=== PATIENT | female | born 1980 | race Caucasian/White ===

== ENCOUNTER → 2017-02-05 | Outpatient (CLI) | payer BC ==
--- NOTE | 2017-02-05 15:41 | DI ---
Indication: ITS.REASON: Z34.91 Encounter for supervision of normal , unspecified PROCEDURE: US OB <14 WKS WITH TRANSVAG: Encounter: Initial Age by LMP is 10 weeks and 3 days. This correlates to an DAR of August 31, 2017. Comparison: None PROCEDURE: US OB <14 WKS WITH TRANSVAG: Technique: Transabdominal and transvaginal pelvic sonographic imaging was performed. Findings: Imaging demonstrates a single intrauterine gestation. There is an embryo with no detectable cardiac activity. There is a subchorionic hemorrhage adjacent to the gestational sac measuring 1.7 cm in maximal diameter in the lower uterine segment. Both ovaries were identified and appear normal. The left measures 3.9 x 2.8 x 2.4 cm, and the right 2.2 x 1.7 x 2.2 cm. No abnormal adnexal mass. No free fluid. biometry: [place] rump length 1.62 cm: 8 weeks and 1 days. Impression: demise with estimated gestational age of 8 weeks and 1 days by ultrasound. Results were called to the office of the referring physician at 1535 on February 05, 2017. .
== END ==
LOC: IMA 14:11
PROVIDERS: ATTEND Family Medicine
DX: O36.4XX0 Maternal care for intrauterine death, not applicable or unspecified (principal); Z3A.08 8 weeks gestation of pregnancy

== ENCOUNTER 2017-02-14 11:56 | Day surgery (SDC) | payer BC ==
[2017-02-14] VITALS (8 sets, daily range): BP systolic 102–122; BP diastolic 50–72; PULSE 62–81; RESP 13–18; TEMP 98.2–98.5; O2SAT 93–98; Ht 154.9 cm; Wt 112.9 kg
[~2017-02-14] VITALS: Ht 154.9 cm; Wt 112.9 kg
[~2017-02-14 11:56] MED LIST: PREN1TAB73 PO
[2017-02-14] MEDS ORDERED: LR 1,000 ML IV PRN (12:15)
[2017-02-14] MEDS ORDERED: LIDOCAINE 1% (10mg/ml) 2ml SDV INJ ONE (12:15)
[2017-02-14 12:40] LABS: HCT - HEMATOCRIT 40.6 % (36-46); HGB - HEMOGLOBIN 13.3 GM/DL (12-16); MEAN CORPUSCULAR HGB 28.2 UUG (26-34); MEAN CORPUSCULAR HGB CONC(MCHC 32.8 GM/DL (31-37); MEAN CORPUSCULAR VOLUME 86.2 UM3 (80-100); MEAN PLATELET VOLUME 10.2 UM3 (9.4-12.4); RED BLOOD COUNT 4.71 M/MM3 (4.00-5.20); WBC - WHITE BLOOD COUNT 7.9 T/MM3 (4.5-11.0)
--- NOTE | 2017-02-14 13:09 | ANESPREOP ---
Anesthesia Record Date and Time DATE: 02/14/17 TIME: 13:08 Pre-Op Diagnosis missed Proposed Surgical Procedure D&C NPO since: 2199 Allergies: Coded Allergies: No Known Drug Allergies (Verified Allergy, Unknown, 02/13/17) Ht/Wt/BMI Height: 5 ' 1.00 " Weight: 112.900 kg BMI: 47.0 kg/m2 Vital Signs Date Time Temp Pulse Resp B/P Pulse Ox O2 Delivery O2 Flow Rate FiO2 02/14/17 12:15 98.5 81 13 119/63 98 Room Air Medications Inpatient Medications Current Medications Medications (Trade) Dose Ordered Sig/Rhona Start Time Stop Time Status Last Admin Dose Admin Lactated Ringer's (Lactated Ringers) 1,000 ml @ 0 mls/hr Q0M PRN 02/14/17 12:15 02/14/17 12:35 0 MLS/HR Pnv95/Ferrous Fumarate/FA ( Tablet) 1 Each Tablet, 1 TAB PO DAILY, ( Reported) Last Taken: on 02/13/17 Currently on Beta Padmini: No Medical/Surgical History Anesthesia PMH: Reports: Obesity, Sleep Apnea, Denies: *Angina, *Diabetes, *DE , Anesthesia Reactions (NO AIRWAY ISSUES ), Asthma, CHF, COPD, CVA/Stroke/TIA, Cancer, Clotting Problems, Glaucoma, Hiatal Hernia, Malignant Hyperthermia, Pneumonia, Reflux, Seizures, Tuberculosis Smoking Status: Never smoker Has pt. smoked today?: No Use Chewing Tobacco?: No Second Hand Exposure: No Substance Use Type: does not use Alcohol Intake: none HX of Last Menstrual Period: 2016 Past Surgical History Orthopedic Surgeries: Abdominal Surgeries: Yes - CHOLECYSTECTOMY Genitourinary Surgeries: Cardiac Surgeries: Endocrine Surgeries: Reproductive Surgeries: Neurological Surgeries: Ear Surgeries: Nose Surgeries: Throat Surgeries: Other Surgeries: Anesthesia Adverse Reactions: FOUND none Pertinent Findings Laboratory Tests 02/14/17 12:33 EKG Rhythm: Sinus Rhythm Physical Exam Respiratory: Lungs clear Cardiovascular: FOUND Regular rate, rhythm Airway Assessment Mallampati Score: III TMD: 3 Fingerbreadths Neck Extension: Good Teeth: Chipped Teeth/Crowns Overall Assessment: May Be Diff Mask Vent., May Be Diff Intubation ASA: 2 Plan Anesthesia Plan: TIVA, LMA Discussion Discussed risks/options/alternatives of anesthesia and questions answered. Patient consents. Nursing pain assessment noted. Attestation Statement Prior to the delivery of any anesthetic medication, I examined the patient, developed the plan, obtained the patient's consent and discussed the risk and benefits of the procedure with the patient/guardian. RIN STEVENSON CRNA Feb 14, 2017 13:09
[2017-02-14] MEDS ORDERED: PROPOFOL 500mg 50 ML IV ONE (13:58)
[2017-02-14] MEDS ORDERED: PROPOFOL 200mg 20 ML IV ONE (13:58)
[2017-02-14] MEDS ORDERED: FENTANYL 100mcg/2ml INJECTION ONE (14:03)
[2017-02-14] MEDS ORDERED: MIDAZOLAM 2mg/2ml INJECTION ONE (14:03)
[2017-02-14] MEDS ORDERED: DEXAMETHASONE 4mg/ml - 1ml INJECTION ONE (14:04)
[2017-02-14] MEDS ORDERED: ONDANSETRON 4mg/2ml INJECTION ONE (14:04)
[2017-02-14] MEDS ORDERED: ONDANSETRON 4mg/2ml INJECTION IV PRN (14:30)
[2017-02-14] MEDS ORDERED: HYDROMORPHONE 2mg/ml INJECTION IV PRN (14:30)
[2017-02-14] MEDS ORDERED: METOCLOPRAMIDE 10mg/2ml INJECTION IV PRN (14:30)
--- NOTE | 2017-02-14 14:46 | ANESPO ---
Post-Op Note Date 02/14/17 Time: 14:45 Status Pt Participated in Evaluation: Pt participated in person Vital Signs Date Time Temp Pulse Resp B/P Pulse Ox O2 Delivery O2 Flow Rate FiO2 02/14/17 12:15 98.5 81 13 119/63 98 Room Air Respiratory Function: Airway patent Cardiovascular Function: Regular pulse Telemetry Pattern: SR Mental Status: Alert/oriented Pain Level Intensity: 0 Hydration: IV infusing Complications during Recovery None apparent Follow-Up Instructions Instructions Per Surgeon BALAJI RICHTER CRNA Feb 14, 2017 14:46
[2017-02-14] MEDS ORDERED: HYDROCODONE/APAP 5 mg/325 mg TABLET PO PRN (15:00)
[2017-02-14] MEDS ORDERED: RHO(D) IMMUNE GLOBULIN 300mcg/2ml INJECTION IV ONE (15:00)
--- NOTE | 2017-02-18 11:37 | OPNOTEF ---
DATE OF SURGERY 02/14/2017 PREOPERATIVE DIAGNOSIS Missed . POSTOPERATIVE DIAGNOSIS Missed . PROCEDURE Suction D&C. EBL Minimal. SURGEON Gera Tabor MD COMPLICATIONS None. ANESTHESIA TIVA This is a patient of Dr. Krystin Carmona who was sent to me by Dr. Padmini Castellon for a retained missed AB. She had a sono a little over a week ago that showed an 8-week demise. She has had no spotting or bleeding. After talking about expectant management versus D&C, the patient opted for a D&C as possible as possible, so it was added on for today. DESCRIPTION OF PROCEDURE After adequate anesthesia, the patient was prepped and draped in the low lithotomy position. A heavy weighted speculum was placed posteriorly and an anterior retractor was used to visualize the cervix which was grasped at the 12 o'clock position with an Allis clamp. The cervix was serially dilated to 25 Muhammad and then a #8 curved suction curette was introduced and the endometrial cavity was curettaged. A moderate amount of tissue was obtained. I did two passes with the suction and then I used a sharp curette to ensure that I got to the endometrial cavity and no remaining tissue was there and then I did an additional pass with the suction. At the end of the case there was a little bit of bleeding from her cervix, so I put a ring forceps around it and let it wait to clot. Then I removed the ring forceps after a few minutes and things were essentially hemostatic. The patient went to recovery room in stable condition. ALBERT
== END 2017-02-14 16:13 | disposition home or self-care (01) ==
LOC: SCU 11:56
PROVIDERS: ATTEND Obstetrics & Gynecology
DX: O02.1 Missed abortion (principal)
CPT/HCPCS: 59820; 85027; J1100; J2250; J2405; J2704; J2791; J3010; J7120